=== PATIENT | female | born 1975 | race Two or more races ===

== ENCOUNTER 2022-01-09 13:30 | Emergency (ER) | payer MEDICAID, OTHER ==
[~2022-01-09] VITALS: Ht 165.1 cm; Wt 72.6 kg
[2022-01-09] MEDS ORDERED: IBUP800T27 PO (16:05)
[2022-01-09] MEDS ORDERED: METH750T22 PO (16:05)
[2022-01-09 16:23] VITALS: BP 127/82
== END 2022-01-09 17:11 | disposition home or self-care (01) ==
LOC: ER 13:35
DX: S16.1XXA Strain of muscle, fascia and tendon at neck level, initial encounter (principal); S43.401A Unspecified sprain of right shoulder joint, initial encounter; V43.62XA Car passenger injured in collision with other type car in traffic accident, initial encounter; Y93.89 Activity, other specified; Y92.89 Other specified places as the place of occurrence of the external cause; Y99.8 Other external cause status
CPT/HCPCS: 72125